=== PATIENT | female | born 1985 | race African-American/Black ===

== ENCOUNTER 2023-04-30 13:02 | Emergency (ER) | payer OTHER ==
[~2023-04-30] VITALS: Ht 162.6 cm; Wt 65.0 kg
[2023-04-30 13:05] VITALS: O2SAT 98
[2023-04-30] MEDS: ACETAMINOPHEN 325MG TABLET PO ONE (14:15)
[2023-04-30 15:00] VITALS: BP 124/78; PULSE 75; RESP 16; TEMP 98.8
== END 2023-04-30 15:10 | disposition home or self-care (01) ==
LOC: ER 13:02
DX: S80.02XA Contusion of left knee, initial encounter (principal); Z88.5 Allergy status to narcotic agent; Z88.8 Allergy status to other drugs, medicaments and biological substances; W22.8XXA Striking against or struck by other objects, initial encounter; X58.XXXA Exposure to other specified factors, initial encounter; Y93.89 Activity, other specified; Y92.89 Other specified places as the place of occurrence of the external cause; Y99.8 Other external cause status
CPT/HCPCS: 73562; 81025; 99283